=== PATIENT | male | born 1980 | race Caucasian/White ===

== ENCOUNTER 2020-12-31 14:53 | Emergency (ER) | payer SELFPAY ==
[~2020-12-31] VITALS: Ht 167.6 cm; Wt 84.0 kg
[2020-12-31] MEDS ORDERED: LORAZEPAM 2MG/ML CPJ IV ONE ×3 (15:15→17:45)
[2020-12-31] MEDS ORDERED: SODIUM CHLORIDE 0.9% 1,000 ML IV ONE ×2 (15:15→17:00)
[2020-12-31 15:58] LABS: HEMATOCRIT. 46.8 % (42.0-52.0); HEMOGLOBIN. 16.1 g/dL (14.0-18.0); MEAN CORPUSCULAR HEMOGLOBIN 33.6 pg (28.0-32.0); MEAN CORPUSCULAR VOLUME 97.6 fL (80.0-94.0); MEAN PLATELET VOLUME 9.3 fl (7.4-10.4); PLATELET 155 x1000/uL (130-400); RED CELL DISTRIBUTION WIDTH 13.1 % (11.6-14.6)
[2020-12-31 16:05] LABS: CHLORIDE 103 mEq/L (98-107)
[2020-12-31 16:09] LABS: ETHANOL BLOOD < 10 mg/dL
[2020-12-31 16:13] LABS: *AMPHETAMINES SCREEN URINE PRESUMTIVE POSITIVE (NEGATIVE); *BARBITURATES SCREEN URINE NEGATIVE (NEGATIVE); *BENZODIAZEPINES SCREEN URINE NEGATIVE (NEGATIVE)
[2020-12-31 16:14] LABS: *COCAINE SCREEN URINE NEGATIVE (NEGATIVE); CANNABINOID URINE SCREEN NEGATIVE (NEGATIVE); METHADONE URINE SCREEN NEGATIVE (NEGATIVE); OPIATES URINE SCREEN NEGATIVE (NEGATIVE); PHENCYCLIDINE URINE SCREEN NEGATIVE (NEGATIVE)
[2020-12-31 16:15] LABS: PLATELET ESTIMATE NORMAL
[2020-12-31 19:08] LABS: CREATINE KINASE 1348 IU/L (39-308)
[2021-01-01 01:24] VITALS: BP 124/84
== END 2021-01-01 02:23 | disposition home or self-care (01) ==
LOC: ER 15:10
DX: T43.621A Poisoning by amphetamines, accidental (unintentional), initial encounter (principal); R07.89 Other chest pain; R00.0 Tachycardia, unspecified; F15.188 Other stimulant abuse with other stimulant-induced disorder; R03.0 Elevated blood-pressure reading, without diagnosis of hypertension; Y92.89 Other specified places as the place of occurrence of the external cause; J45.909 Unspecified asthma, uncomplicated
CPT/HCPCS: 36415; 71045; 80053; 80305; 80320; 82550; 83880; 84484; 85025; 93005; 96361; 96374; 96376; 99285; J2060; J7030; Z7610; G0480